=== PATIENT | female | born 1980 | race Two or more races ===

== ENCOUNTER 2019-03-11 07:55 | Emergency (ER) | payer OTHER ==
[~2019-03-11] VITALS: Ht 157.5 cm; Wt 82.0 kg
[2019-03-11 08:01] VITALS: BP 125/81
== END 2019-03-11 08:45 | disposition home or self-care (01) ==
LOC: ER 07:55
DX: T65.891A Toxic effect of other specified substances, accidental (unintentional), initial encounter (principal); Y92.9 Unspecified place or not applicable; F41.9 Anxiety disorder, unspecified; G35 Multiple sclerosis; F17.210 Nicotine dependence, cigarettes, uncomplicated
CPT/HCPCS: 99281